=== PATIENT | female | born 2000 | race Caucasian/White ===

== ENCOUNTER 2020-04-05 11:18 | Emergency (ER) | payer SELFPAY ==
[2020-04-05 11:19] VITALS: BP 119/76; PULSE 77; RESP 18; TEMP 37; O2SAT 95; BMI 28.3
--- NOTE | 2020-04-05 11:59 | [facility].EDGENADL ---
ED Disposition Clinical Impression: Nausea, Lower abdominal pain Disposition: Home, Self-Care Condition on Discharge: Good Instructions: DI for Abdominal Pain-Adult, DI for Nausea -- Adult Additional Instructions: Zofran as needed for nausea. Follow-up with primary care provider on Wednesday if not improving. Additional instructions for ABDOMINAL PAIN: See your physician as soon as possible for further evaluation. Return immediately if worsening abdominal pain, vomiting, shortness of breath, fever, vomiting of blood or abdominal distention. Prescriptions: Ondansetron [Zofran 4mg ODT] 4 mg PO TIDP PRN #[id number] tab.rapdis PRN Reason: Nausea And Vomiting Transmission Status: Pending to [id number] Referrals: Asa Carrasco MD [Primary Care Provider] - - Critical Care Critical Care Time: No Attestation: On 04/05/20, the high probability of a clinically significant, sudden or life threatening deterioration of the following system(s) required my full and direct attention, intervention and personal management. The time I documented below is in addition to time spent performing reported procedures but includes the following listed in this critical care notation. Medical Decision Making - Tarun Inquiry Pt receiving controlled substance: No Vital Signs: 04/05/20 11:19 Temperature 98.6 F Temperature Source Oral Pulse Rate [Right Brachial] 77 Respiratory Rate 18 Blood Pressure [Right Arm] 119/76 Blood Pressure Mean [Right Arm] 90 Blood Pressure Source [Right Arm] Automatic Cuff Blood Pressure Position [Right Arm] Supine 02 Sat by Pulse Oximetry 95 Oxygen Delivery Method Room Air - Lab Data Lab Results 04/05/20 11:31: Urine Color Yellow, Urine Appearance Clear, Urine pH 6.0, Ur Specific [place] 1.025, Urine Protein Negative, Urine Glucose (UA) Negative, Urine Ketones Negative, Urine Blood Negative, Urine Nitrate Negative, Urine Bilirubin Negative, Urine Urobilinogen 0.2, Ur Leukocyte Esterase Trace, Urine RBC None, Urine WBC 3-5, Ur Squamous Epith Cells 5-10, Urine Bacteria 1+ 04/05/20 11:31: Urine HCG, Qual Negative 04/05/20 12:10: WBC 10.2, RBC 5.23, Hgb 16.0, Hct 46.0, MCV 88.0, MCH 30.7, MCHC 34.8, RDW 13.7, Plt Count 248, MPV 7.9, Neut % (Auto) 82.3 H, Lymph % (Auto) 11.3, [place] % (Auto) 4.9, Eos % (Auto) 1.2, Baso % (Auto) 0.3, Neut # (Auto) 8.4 H, Lymph # (Auto) 1.2, [place] # (Auto) 0.5, Eos # (Auto) 0.1, Baso # (Auto) 0.0 04/05/20 12:10: Sodium 139, Potassium 3.9, Chloride 108 H, Carbon Dioxide 22, Anion Gap 12.9, BUN 12, Creatinine 0.70, Estimated Creat Clear 146, Estimated GFR 106, Est GFR ( Amer) 128, Glucose 79, Calcium 8.7, Total Bilirubin 0.5, AST 36, ALT 45, Alkaline Phosphatase 59, Total Protein 7.8, Albumin 4.5, Globulin 3.3 H, Albumin/Globulin Ratio 1.4 Result diagrams: 04/05/20 12:10 04/05/20 12:10 Orders (Tests/Meds): ED MEDICATIONS Generic Name Dose Route Start Last Admin Trade Name Freq PRN Reason Stop Dose Admin Sodium Chloride 1,000 mls @ 999 mls/hr 04/05/20 12:15 04/05/20 12:18 Sod Chlor 0.9% 1000ml Bag IV 04/05/20 13:15 999 mls/hr .[id number] SAL Administration Discontinued Medications Generic Name Dose Route Start Last Admin Trade Name Freq PRN Reason Stop Dose Admin Ondansetron HCl 4 mg 04/05/20 12:14 04/05/20 12:16 Zofran 4mg/2ml Vial IV 04/05/20 12:15 4 mg ONCE ONE Administration Medical Decision Narrative: Discussed evaluation with patient. Recommended CT scan of abdomen and pelvis given right lower quadrant tenderness, to rule out appendicitis. Recommended blood work and urine analysis. The patient says that today is her daughter's birthday and she does not want to spend much time here. States she wanted to go to the urgent treatment center, but when she got here it was not open. She is agreeable to blood work and urine, but does not want a CT scan of her abdomen. Discussed medication for nausea and she is agreeable.
[2020-04-05 12:17] LABS: Microscopic, Urine URINE MICROSCOPIC (MICROSCOPIC)
[2020-04-05 12:19] LABS: Appearance,Urine CLEAR (Clear); Bilirubin,Urine Negative (Negative); Blood, Urine Negative (Negative); Color,Urine YELLOW (Yellow); Glucose,Urine (UA) Negative (Negative); Ketones,Urine Negative (Negative); Leukocyte Esterase,Urine TRACE (Negative); Nitrate,Urine Negative (Negative); Protein,Urine Negative (Negative); Specific Gravity, Urine 1.025 (1.005-1.030); Urobilinogen,Urine 0.2 EU/dl (0.2)
[2020-04-05 12:21] LABS: Urine Pregnancy, HCG Qual. Negative (Negative)
[2020-04-05 12:28] LABS: Basophils % 0.3 % (0.1-2.0); Eosinophils # 0.1 K/mm3 (0.0-0.4); Eosinophils % 1.2 % (0.1-12.0); Lymphocytes # 1.2 K/mm3 (0.7-4.5); Lymphocytes % 11.3 % (10-50); Mean Corpuscular HGB Conc 34.8 g/dL (31.8-35.4); Mean Corpuscular Hemoglobin 30.7 pg (27.0-31.2); Mean Platelet Volume 7.9 fl (7.4-10.4); Monocytes # 0.5 K/mm3 (0.1-1.0); Monocytes % 4.9 % (1.7-9.3); Neutrophils # 8.4 K/mm3 (1.8-7.8); Neutrophils % 82.3 % (37.0-80.0); Platelet Count 248 K/mm3 (142-424); Red Blood Count 5.23 M/mm3 (4.20-5.40); Red Cell Distribution Width 13.7 % (11.5-17.5); White Blood Count 10.2 K/mm3 (4.8-10.8)
[2020-04-05 12:31] LABS: Chloride 108 mmol/L (98-107); Potassium 3.9 mmoL/L (3.5-5.1); Sodium 139 mmol/L (136-145)
[2020-04-05 12:33] LABS: Blood Urea Nitrogen 12 mg/dl (7-17); Creatinine Clearance Estimated 146 mL/min (50-200); Estimated Glomerular Filt Rate 106 ml/min (>60); GFR (African American) 128 ML/MIN (>60)
[2020-04-05 12:34] LABS: Alanine Aminotransferase 45 U/L (12-78); Albumin Level 4.5 g/dl (3.5-5.0); Albumin/Globulin Ratio 1.4 (1.1-1.8); Alkaline Phosphatase 59 U/L (38-126); Anion Gap 12.9 mEq/L (5-15); Aspartate Amino Transferase 36 U/L (14-36); Bilirubin,Total 0.5 mg/dl (0.2-1.3); Calcium 8.7 mg/dl (8.4-10.2); Carbon Dioxide 22 mmol/L (22.0-30.0); Globulin 3.3 g/dL (1.3-3.2); Glucose 79 mg/dl (74-100); Total Protein,Serum 7.8 g/dl (6.3-8.2)
[2020-04-05 12:35] LABS: Bacteria,Urine 1+ /lpf
[2020-04-05 12:58] VITALS: BP 106/70; PULSE 65; RESP 16; TEMP 36.8; O2SAT 98
== END 2020-04-05 12:59 | disposition home or self-care (01) ==
PROVIDERS: Emergency Provider Emergency Medicine; PCP Family Medicine
DX: R10.30 Lower abdominal pain, unspecified (principal); R51 Headache
CPT/HCPCS: 80053; 81001; 81025; 85025; 96365; 96375; 99283; J2405

== ENCOUNTER 2025-09-09 12:55 | Outpatient (CLI) | payer BC, SELFPAY | END 2025-09-09 23:59 | disposition home or self-care (01) | LOC: LAB.DROPOF 09-13 12:55 | PROVIDERS: Visit Provider Nurse Practitioner | DX: J02.9 Acute pharyngitis, unspecified (principal) | CPT/HCPCS: 87070 ==